=== PATIENT | female | born 1970 | race Caucasian/White ===

== ENCOUNTER 2019-08-05 08:22 | Day surgery (SDC) | payer MEDICAID, SELFPAY ==
[2019-08-05] VITALS (8 sets, daily range): BP systolic 104–137; BP diastolic 53–71; PULSE 62–74; RESP 18; TEMP 36.4–36.9; O2SAT 96–100; BMI 23.8
[2019-08-05 08:14] LABS: Probe Check PASS; Specimen Processing Control PASS
--- NOTE | 2019-08-05 08:21 | EKG12_ITS ---
Test Reason : PRE-OP Blood Pressure : / mmHG Vent. Rate : 060 BPM Atrial Rate : 060 BPM P-R Int : 162 ms QRS Dur : 068 ms QT Int : 424 ms P-R-T Axes : 061 061 043 degrees QTc Int : 424 ms Normal sinus rhythm Normal ECG No previous ECGs available Confirmed by WIL MARINELLI, TACO ([id number]), editorial clerk ANGELIKA JUAN ([id number]) on 08/08/2019 1:39:40 PM Referred By: Ulises Marino Confirmed By:TACO DE LA TORRE MD
[2019-08-05 08:49] LABS: Hemoglobin 13.5 g/dL (12.0-15.0); Mean Corp Hgb Conc 32.1 g/dL (32-36); Mean Corpuscular Hgb 29.9 pg (27.0-32.0); Mean Corpuscular Volume 92.9 fL (81-99); Mean Platelet Vol. 10.3 fl (6.2-12.0); Platelet Count 254 K/mm3 (150-450); RBC Distribution Width SD 44.5 fl (35.1-43.9); Red Blood Count 4.52 M/mm3 (4.2-5.4); White Blood Count 10.4 K/mm3 (4.4-11.0)
[2019-08-05] MEDS: Lactated Ringers 1,000 ML 100 ML IV (09:18)
[2019-08-05] MEDS: Oxymetazoline 0.05% 1 SPRAY SPRAY.BTL 15 SPRAY (10:20)
--- NOTE | 2019-08-05 10:27 | PCM.OPRPT ---
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 She had not presented frequently for debridement of her mastoid cavity and had developed a significant amount of debris and progressive pain over the last several months. Attempted debridement in the office was poorly tolerated secondary to pain and over the last week she is developed a right facial palsy due to the inflammation from the chronically impacted debris. The risks, alternatives, potential complications, and benefits were discussed at length and any questions answered to the patient and/or caregiver's satisfaction. Witnessed informed consent was obtained in the office, and the patient and/or caregiver was agreeable to proceed. Procedure went as follows: The patient was identified in the preoperative holding and brought to the operating room where she was placed under monitored anesthesia care. When appropriate pain control was achieved the operative microscope was brought into the field and began on the right side the external auditory canal and mastoid cavity examined. There is noted to be firmly impacted squamous debris in the facial recess that was removed. A small portion of granulation tissue over the anterior fallopian canal was then noted with extension of the cholesteatoma anteriorly. This was additionally debrided with a #3 suction and small curved pick taking care to preserve the facial nerve which is exposed along its length through the middle ear cleft secondary to her prior surgery and the extent of her disease. Once the mastoid cavity was fully cleaned as well as the anterior involvement of the cholesteatoma topical oxymetazoline was then applied for hemostasis at the 2 mm point of granulation tissue. The patient was then returned to anesthesia where she was recovered without complication having tolerated the procedure well. Type of Anesthesia:: MAC Anesthesiologist: Ulises Navas Special Medications: none Specimen's removed: none Drains: none Estimated Blood Loss (mL): 0 mL Fluids Replaced: 300 mL Grafts/Implants Used: none - Complications none - Admit VTE Documentation VTE Present on Admission: No VTE Mechan Device Prophylaxis: None VTE Pharm Prophylaxis ordered?: No Reason prophylaxis not ordered:: Treatment Not Indicated
--- NOTE | 2019-08-05 10:33 | DCINST_ITS ---
- Discharge Diagnoses Current Active Problems: Current Active and Chronic Problems Recurrent cholesteatoma of mastoid cavity (Chronic) Facial nerve palsy (Acute) You will use the following diet at home:: No restrictions Discharge Activity: Return to Normal Activity Call your doctor if your incision/area has: Continuous Slow Oozing, Increased Pain/ Swelling Call your doctor if you observe: Fever of 101 or Higher Allergies/Adverse Reactions: Allergies No Known Allergies Allergy (Verified 08/05/19 08:52) Medications to take at Discharge Ciprofloxacin [Cipro] 500 mg PO BID 08/04/19 Methylprednisolone [Medrol] 4 mg PO TID 08/04/19 Primary Care Physician: LIZA CLARIE [Other] Test Results: Test results from this visit will be discussed in further detail at your follow- up appointment, if applicable. Please Follow Up With: Ulises Marino MD - [place] office When: 2 weeks
== END 2019-08-05 11:45 | disposition home or self-care (01) ==
LOC: SDC 08:29 → AC 08:29
PROVIDERS: Anesthesiology; Referring Provider Otolaryngology; Visit Provider Otolaryngology
PROC: (CPT 69222; principal; 2019-08-05 09:00)
DX: H71.21 Cholesteatoma of mastoid, right ear (principal); H95.01 Recurrent cholesteatoma of postmastoidectomy cavity, right ear; G51.0 Bell's palsy; F17.200 Nicotine dependence, unspecified, uncomplicated; Z11.59 Encounter for screening for other viral diseases; Z79.2 Long term (current) use of antibiotics
CPT/HCPCS: 00120; 69222; 85027; 87635; 93005; 94799; G2023; J7120; J2405; U0003